=== PATIENT | male | born 1950 | race Caucasian/White ===

== ENCOUNTER 2018-06-08 17:45 | Emergency (ER) | payer OTHER ==
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
[2018-06-08] MEDS ORDERED: TDAP ADULT 0.5 ML INJ (BOOSTRIX) IM ONE (18:10)
[2018-06-08 19:40] VITALS: BP 139/84
== END 2018-06-08 20:26 | disposition home or self-care (01) ==
DX: S06.0X0A Concussion without loss of consciousness, initial encounter (principal); S40.811A Abrasion of right upper arm, initial encounter; V18.2XXA Unspecified pedal cyclist injured in noncollision transport accident in nontraffic accident, initial encounter; Y93.55 Activity, bike riding; Y92.9 Unspecified place or not applicable